=== PATIENT | male | born 1980 | race Caucasian/White ===

== ENCOUNTER 2019-04-02 22:59 | Emergency (ER) | payer MEDICAID ==
[~2019-04-02] VITALS: Ht 167.6 cm; Wt 78.0 kg
[2019-04-02 23:02] VITALS: BP 146/87
[2019-04-02] MEDS ORDERED: BACITRACIN ZINC OINT 500U/GM, 0.9 GM ONE ×2 (23:25→23:30)
[2019-04-02] MEDS ORDERED: DIPH,PERTUSS(ACELL),TET VAC/PF 0.5 ML IM-VACC ONE ×2 (23:30)
[2019-04-02] MEDS ORDERED: LIDOCAINE-MPF 1%, 5ML INFIL ONE (23:30)
--- NOTE | 2019-04-02 23:49 | NUR ---
DC EDUCATION PROVIDED, PT DEMONSTRATES UNDERSTANDING. PT AMBULATED STEADILY TO DC WITH RN
[2019-04-03] MEDS ORDERED: PHEN100C PO (20:36)
== END 2019-04-02 23:51 | disposition home or self-care (01) ==
LOC: ED 23:46
DX: S61.001A Unspecified open wound of right thumb without damage to nail, initial encounter (principal); S60.011A Contusion of right thumb without damage to nail, initial encounter; S60.311A Abrasion of right thumb, initial encounter; Z88.0 Allergy status to penicillin; W23.0XXA Caught, crushed, jammed, or pinched between moving objects, initial encounter; Y93.89 Activity, other specified; Y92.009 Unspecified place in unspecified non-institutional (private) residence as the place of occurrence of the external cause; Y99.8 Other external cause status
CPT/HCPCS: 90471; 90715

== ENCOUNTER 2019-04-03 03:50 | Emergency (ER) | payer MEDICAID ==
[~2019-04-03] VITALS: Ht 177.8 cm; Wt 80.0 kg
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
[2019-04-03] MEDS ORDERED: PHENYTOIN SODIUM 600 MG in SODIUM CHLORIDE 0.9% 100 ML IVPB ONE (04:00)
[2019-04-03] MEDS ORDERED: LORazepam 2 MG/ML, 1ML IVPush ONE (04:00)
[2019-04-03] MEDS ORDERED: SODIUM CHLORIDE FLUSH 10ML SYR IVF ONE (04:00)
--- NOTE | 2019-04-03 04:02 | NUR ---
PT TO CT VIA ANGELINE
--- NOTE | 2019-04-03 04:10 | NUR ---
PT BACK TO ROOM VIA GURJAYNE FROM CT.
[2019-04-03] MEDS ORDERED: LORazepam 2 MG/ML, 1ML ONE (04:22)
[2019-04-03] MEDS ORDERED: FILTER 0.22 MICRON IV ONE (04:30)
--- NOTE | 2019-04-03 04:33 | NUR ---
PT MEDICATED PER MAR.
[2019-04-03 04:38] LABS: BASOPHILS # (AUTO) 0.07 x10^3/uL (0-0.1); BASOPHILS % (AUTO) 1 % (0-1); EOSINOPHILS % (AUTO) 3 % (1-7); LYMPHOCYTES # (AUTO) 1.88 x10^3/uL (1-3.4); LYMPHOCYTES % (AUTO) 21 % (22-44); MD NO; MEAN CORPUSCULAR HGB CONC 33.1 g/dL (33.2-36.2); MEAN CORPUSCULAR VOLUME 90.7 fL (81-97); MONOCYTES # (AUTO) 0.76 x10^3/uL (0.2-0.8); MONOCYTES % (AUTO) 9 % (2-9); NEUTROPHILS # (AUTO) 5.92 x10^3/uL (1.8-6.8); NEUTROPHILS % (AUTO) 66 % (42-75); PLATELET COUNT 528 x10^3/uL (130-400); RED BLOOD COUNT 4.57 x10^6/uL (4.38-5.82); RED CELL DISTRIBUTION WIDTH 14.2 % (9.4-14.8)
[2019-04-03 04:49] LABS: ALANINE AMINOTRANSFERASE 18 U/L (12-78); ALBUMIN 3.5 g/dL (3.4-5.0); ANION GAP 7 mmol/L (5-15); CALCIUM 8.7 mg/dL (8.5-10.1); CHLORIDE 113 mmol/L (98-107); CREATININE 1.07 mg/dL (0.7-1.3)
[2019-04-03 05:04] LABS: ALKALINE PHOSPHATASE 70 U/L (45-117); BILIRUBIN,TOTAL < 0.1 mg/dL (0.2-1.0); TOTAL PROTEIN 7.2 g/dL (6.4-8.2)
--- NOTE | 2019-04-03 05:49 | NUR ---
PT VSS AND UPDATED IN EMR. PT STILL RESPONDS ONLY TO PAINFUL STIMULI. PT HAS STRONG, EQUAL BILATERAL RISE AND FALL OF CHEST. PT IN DIRECT VIEW OF PRIMARY RN FOR OBSERVATION.
--- NOTE | 2019-04-03 07:13 | NUR ---
Recieved bedside report from ZOLTAN Delgado. All questions answered. NADN. Pt resting on gurney connected to NIBP, continous pulse ox, and phototypesetting equipment monitor. Bedside rails up for safety measures. Call light within reach. Pt wearing 2L NC oxygen to maintain SPO2% above 90%. Pt has unlabored respirations with even chest rise and fall.
[2019-04-03 08:49] VITALS: BP 129/74
--- NOTE | 2019-04-03 08:54 | NUR ---
Pt awakes to voice. Pt had pulled out own PIV in right AC (18 g) with tip in tact. NADN. Pt connected to NIBP, continous pulse ox, and waiver analyst. Pt is AOX4. Pt requesting urinal. Urinal provided. ED MD aware. No other needs requested a this time.
--- NOTE | 2019-04-03 09:14 | NUR ---
Pt ambulates with steady gait and balance. Re-dressed pt's right thumb wound. Pt appreciative. Pt requesting local [facility] resources. Provided to pt. Pt provided pt education verbal and written. Pt stated verbal understanding. Pt d/c with steady gait and balance, d/c paperwork and prescription, and all personal belongings.
[2019-04-03] MEDS ORDERED: PHEN100C PO (20:36)
== END 2019-04-03 09:20 | disposition home or self-care (01) ==
LOC: ED 04:01
DX: G40.319 Generalized idiopathic epilepsy and epileptic syndromes, intractable, without status epilepticus (principal); Z88.0 Allergy status to penicillin
CPT/HCPCS: 36415; 70450; 80053; 80185; 85025; 93005; 96365; 96375; 99284; J1165; J2060

== ENCOUNTER 2019-04-03 20:04 | Emergency (ER) | payer MEDICAID ==
[~2019-04-03] VITALS: Ht 177.8 cm; Wt 80.0 kg
--- NOTE | 2019-04-03 20:32 | NUR ---
PT 250 IN ER [facility] FOR SEIZURES. BROUGHT BACK TO ROOM 2, SEIZURE PADS APPLIED AND 2 PIV PLACED. PT HAVING INTERMITTENT CONVULSIONS. PT IS NOT POSTICTAL AFTER CONVULSION, ABLE TO RESPOND TO PAIN AND ANSWER QUESTIONS. PT HAS SORES TO UPPER AND LOWER EXTREMITIES WHICH HE STATES IS FROM [facility].
[2019-04-03] MEDS ORDERED: PHEN100C PO (20:36)
--- NOTE | 2019-04-03 20:49 | NUR ---
PT AROUSABLE TO VOICE ABLE TO ANSWER QUESTIONS APPROPRIATELY. OXYGEN PER SIMPLE MASK AT 5L/MIN
[2019-04-03 21:48] LABS: BASOPHILS # (AUTO) 0.11 x10^3/uL (0-0.1); BASOPHILS % (AUTO) 1 % (0-1); EOSINOPHILS # (AUTO) 0.34 x10^3/uL (0-0.4); EOSINOPHILS % (AUTO) 4 % (1-7); LYMPHOCYTES # (AUTO) 2.11 x10^3/uL (1-3.4); LYMPHOCYTES % (AUTO) 22 % (22-44); MD NO; MEAN CORPUSCULAR HEMOGLOBIN 29.8 pg (27.5-34.5); MEAN CORPUSCULAR HGB CONC 33.1 g/dL (33.2-36.2); MEAN CORPUSCULAR VOLUME 90.1 fL (81-97); MEAN PLATELET VOLUME 7.8 fL (7.4-10.4); MONOCYTES # (AUTO) 0.95 x10^3/uL (0.2-0.8); MONOCYTES % (AUTO) 10 % (2-9); NEUTROPHILS # (AUTO) 5.96 x10^3/uL (1.8-6.8); NEUTROPHILS % (AUTO) 63 % (42-75); PLATELET COUNT 502 x10^3/uL (130-400); RED BLOOD COUNT 4.61 x10^6/uL (4.38-5.82); RED CELL DISTRIBUTION WIDTH 14.7 % (9.4-14.8)
--- NOTE | 2019-04-03 21:55 | NUR ---
PT SLEEPING. VSS. UPDATED ON POC
[2019-04-03 22:00] LABS: ALBUMIN 3.3 g/dL (3.4-5.0); ANION GAP 5 mmol/L (5-15); CALCIUM 8.4 mg/dL (8.5-10.1); CHLORIDE 112 mmol/L (98-107); CREATININE 0.86 mg/dL (0.7-1.3)
[2019-04-03] MEDS ORDERED: FILTER 0.22 MICRON IV ONE (22:30)
[2019-04-03] MEDS ORDERED: PHENYTOIN SODIUM 1,000 MG in SODIUM CHLORIDE 0.9% 100 ML IVPB ONE (22:30)
[2019-04-03 23:05] VITALS: BP 98/65
== END 2019-04-03 23:13 | disposition home or self-care (01) ==
LOC: ED 20:41
DX: F41.1 Generalized anxiety disorder (principal); F15.10 Other stimulant abuse, uncomplicated; Z72.9 Problem related to lifestyle, unspecified
CPT/HCPCS: 36415; 80048; 80185; 82040; 85025; 96365; 99283; J1165

== ENCOUNTER 2019-04-05 08:20 | Emergency (ER) | payer OTHER ==
[~2019-04-05] VITALS: Ht 167.6 cm; Wt 78.0 kg
[~2019-04-05 08:20] MED LIST: PHEN100C PO
[2019-04-05] MEDS ORDERED: PHEN100C PO (08:48)
--- NOTE | 2019-04-05 08:50 | NUR ---
edpa to bs for assessment. pt resting in room. urinal provided. awaiting orders.
--- NOTE | 2019-04-05 08:52 | NUR ---
pt bib [facility] from [facility] at which he apparently had 3 tonic clonic witnessed seizures lasting 10-15 seconds per [facility]. pt with hx: seizures and has not taken his dilantin since April 03. pt alert and oriented and seizure pads placed on bed. iv started in field. assessment completed. pt placed on bp and cont. pulse oximeter. call light in reach. report given to brooks osorio.
[2019-04-05] MEDS ORDERED: PHENYTOIN SODIUM 1,000 MG in SODIUM CHLORIDE 0.9% 100 ML IV ONE (09:00)
[2019-04-05] MEDS ORDERED: FILTER 0.22 MICRON IV ONE (09:00)
--- NOTE | 2019-04-05 09:29 | NUR ---
PT MEDICATED PER MAR. VSS. NO NEEDS EXPRESSED. CALL LIGHT WITHIN REACH.
--- NOTE | 2019-04-05 10:14 | NUR ---
pt unable to tolerate iv dilantin. pt states his shoulder above iv site "noriega". iv flushed and is patent. iv does not appear erythmatous. no streaking or cord noted. edpa notified. dilantin stopped and will reorder po. vss. no other needs expressed.
[2019-04-05] MEDS ORDERED: PHENYTOIN 100 MG CAPSULE PO ONE (10:30)
[2019-04-05 11:24] VITALS: BP 169/84
== END 2019-04-05 11:26 | disposition home or self-care (01) ==
LOC: MERGE 08:20 → ED 11:15
DX: R56.9 Unspecified convulsions (principal); Z72.9 Problem related to lifestyle, unspecified; F41.1 Generalized anxiety disorder
CPT/HCPCS: 93005; 96365; 99283; J1165

== ENCOUNTER 2019-10-03 22:12 | Emergency (ER) | payer MEDICAID ==
[~2019-10-03] VITALS: Ht 167.6 cm; Wt 74.1 kg
--- NOTE | 2019-10-03 22:35 | NUR ---
WAS NOT IN LOBBY AFTER CHECK IN
--- NOTE | 2019-10-03 22:36 | NUR ---
NO ANSWER FROM LOBBY X1
[2019-10-03] MEDS ORDERED: LORazepam 1MG TABLET PO ONE (23:00)
[2019-10-03] MEDS ORDERED: PHENYTOIN 100 MG CAPSULE PO ONE (23:00)
[2019-10-03] MEDS ORDERED: PHENYTOIN 100 MG CAPSULE ONE (23:13)
[2019-10-03] MEDS ORDERED: LORazepam 1MG TABLET ONE (23:13)
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
[2019-10-03 23:23] VITALS: BP 146/97
[2019-10-04] MEDS ORDERED: ACETAMINOPHEN 325 MG TABLET PO ONE
[2019-10-04] MEDS ORDERED: ACETAMINOPHEN 325 MG TABLET ONE (00:01)
== END 2019-10-04 00:09 | disposition home or self-care (01) ==
LOC: ED 23:59
DX: S06.310A Contusion and laceration of right cerebrum without loss of consciousness, initial encounter (principal); X58.XXXA Exposure to other specified factors, initial encounter; Y93.89 Activity, other specified; Y92.410 Unspecified street and highway as the place of occurrence of the external cause; Y99.8 Other external cause status; Z76.0 Encounter for issue of repeat prescription
CPT/HCPCS: 70450; 99284

== ENCOUNTER 2020-11-14 18:08 | Emergency (ER) | payer MEDICAID | END 2020-11-14 19:31 | disposition left against medical advice (07) | LOC: ED 19:20 | DX: M54.2 Cervicalgia (principal) | CPT/HCPCS: 99281 ==

== ENCOUNTER 2020-11-16 11:14 | Emergency (ER) | payer MEDICAID ==
[~2020-11-16] VITALS: Ht 167.6 cm; Wt 79.1 kg
[2020-11-16 11:37] VITALS: BP 167/108
--- NOTE | 2020-11-16 11:46 | NUR ---
HATCH SUPERVISOR: PT TO ROOM FROM TRIAGE VIA W/C
--- NOTE | 2020-11-16 12:20 | NUR ---
PROVIDER AT BEDSIDE TO UPDATE PT ON POC.
== END 2020-11-16 12:51 | disposition home or self-care (01) ==
LOC: ED 12:33
DX: G89.11 Acute pain due to trauma (principal); M25.562 Pain in left knee; W01.0XXA Fall on same level from slipping, tripping and stumbling without subsequent striking against object, initial encounter; Y93.89 Activity, other specified; Y92.89 Other specified places as the place of occurrence of the external cause; Y99.8 Other external cause status
CPT/HCPCS: 29505; 99283